=== PATIENT | female | born 1940 | race African-American/Black ===

== ENCOUNTER 2018-01-09 10:13 | Outpatient (CLI) | payer MEDICARE, OTHER ==
[~2018-01-09 10:13] MED LIST: ALBUTEROL INHALER ORAL; AMLODIPINE BESYL5 MG ORAL; ASPIRIN-LOW81 MG ORAL; ATORVASTATIN CA10 MG ORAL; COZAAR25 MG ORAL; DOCUSATE SODIU100 MG ORAL; FERROUS SULFAT325 M2 PO; GLUCOTROL10 MG ORAL; HYDROCHLOROTHIA25 MG ORAL; JANUMET 50-5001 EACH ORAL; JANUVIA25 MG ORAL; LABETALOL HCL100 MG ORAL; LINZESS145 MCG PO; NEXIUM40 M2 ORAL; VITAMIN A8000 UNIT PO; ZOCOR20 M1 ORAL
[2018-01-09 15:17] VITALS: BP 146/68
--- NOTE | 2018-01-10 15:33 | GI Initial Consult Note ---
History of Present Illness General Date patient seen: Jan 10, 2018 Time patient seen: 15:27 Referring physician: JEAN Reason for Consultation: RECTAL DISCOMFORT Present Illness HPI 77 year old female patient referred by Dr. Meeks presents today with complaint of rectal pressure and discomfort. In addition, has complaint of constipation in which she uses stool softeners. Hx. of uterine cancer (2003), colon cancer (2008), DM, asthma, HTN, GERD, cataracts, dyslipidemia. S/P EGD and colonoscopy 2014 noted with gastritis, colon polyp x3. Denies abdominal pain, no weight loss, melena, or hematochezia. Strong family history of colon cancer. Home Meds Reported Medications Linaclotide (LINZESS) 145 Mcg Capsule, 145 MCG PO DAILY, CAP 01/07/15 Simvastatin (ZOCOR) 20 Mg Tablet, 20 MG ORAL BEDTIME, TAB 12/02/14 Amlodipine Besylate* (AMLODIPINE BESYLATE*) 5 Mg Tablet, 5 MG ORAL DAILY, TAB 12/02/14 Sitagliptin Phos/Metformin Hcl (JANUMET 50-500 MG TABLET) 1 Each Tablet, 1 TAB ORAL DAILY, TAB 12/02/14 Esomeprazole Magnesium (NEXIUM) 40 Mg Suspdr.pkt, 40 MG ORAL DAILY 07/31/12 [Albuterol Inhaler] No Conflict Check, 2 PUFF ORAL NEEDED 07/31/12 Aspirin (Aspirin EC) 81 Mg Tabec, 81 MG ORAL DAILY, TAB 07/31/12 Labetalol Hcl* (NORMODYNE*) 100 Mg Tablet, 100 MG ORAL BID, #20 TAB 07/31/12 Glipizide* (GLUCOTROL*) 10 Mg Tablet, 10 MG ORAL ACBREAKFAST, #10 TAB 07/31/12 Hydrochlorothiazide* (HYDROCHLOROTHIAZIDE*) 25 Mg Tablet, 25 MG ORAL DAILY, TAB 07/31/12 Med list reviewed/reconciled: Yes Allergies: Coded Allergies: WOOL (Verified Allergy, Severe, 12/23/14) SKIN RASH, ITCHING PENICILLINS (Verified Allergy, Intermediate, 12/23/14) SKIN RASH Uncoded Allergies: FIBERGLASS (Allergy, Severe, 12/23/14) FEVER, TOTALLY GOT SICK SHELLFISH (Allergy, Severe, 12/23/14) ABD PAIN, NAUSEA Patient History History Provided By: Patient, Medical Record PMH Narrative See HPI. DM, uterine cancer, colon cancer, HTN, GERD, cataracts, dyslipidemia. Past Surgical History: other - S/P hysterectomy, sigmoid resection, cholecystectomy, cataract surgery, appendectomy. Pertinent Family History: other - Colon cancer in both father and sister. Social History: Denies: alcohol use, drug use, other, smoking Past Surgical History: other - see HPI Social History: Denies: smoking, alcohol use, drug use, other Review of Systems All Other Systems: negative except mentioned in HPI Physical Exam Vital Signs Date Time Temp Pulse Resp B/P (MAP) Pulse Ox O2 Delivery O2 Flow Rate FiO2 01/09/18 15:17 98.5 72 146/68 96 Sp02 EP Interpretation: reviewed, normal General Appearance: well appearing, no apparent distress, alert Head: normocephalic EENT: PERRL/EOMI, normal ENT inspection Neck: supple Respiratory: normal breath sounds, no respiratory distress Cardiovascular: normal rate Gastrointestinal: normal inspection, non tender, soft, normal bowel sounds, non -distended Rectal: deferred Genitourinary: no CVA tenderness Musculoskeletal: normal inspection, back normal Neurologic: normal inspection, alert, oriented x3, responsive Psychiatric: normal inspection, judgement/insight normal, memory normal Skin: normal inspection, normal color, no rash, warm/dry, palpation normal, well hydrated Lymphatic: normal inspection, no adenopathy GI: Plan Problems: (1) Rectal pain (2) GERD (gastroesophageal reflux disease) (3) Colon cancer (4) Colon polyp (5) Gastritis Plan Recommend colonoscopy, patient to call to schedule. - CLD & (Nulytely/Suprep/Movi-Prep) prep instructions given and acknowledged by patient. - NPO @ NH day prior procedure explained. will follow with additional recommendations post procedure. Seen with Dr. Forte. Thank you for this patient referral. The patient was seen and examined at bedside and all new and available data was reviewed in the patients chart. I agree with the above findings, impression and plan. (Patient seen earlier today. Signature stamp does not reflect patient encounter time.). - MD Oksana Torres,[facility] [employer] [facility] RECLAIMER Jan 10, 2018 15:33
== END 2018-01-09 10:43 | disposition home or self-care (01) ==
LOC: PAN 10:13
DX: K62.89 Other specified diseases of anus and rectum (principal); K21.9 Gastro-esophageal reflux disease without esophagitis; Z85.42 Personal history of malignant neoplasm of other parts of uterus; E11.9 Type 2 diabetes mellitus without complications; J45.909 Unspecified asthma, uncomplicated; I10 Essential (primary) hypertension; E78.5 Hyperlipidemia, unspecified; K29.70 Gastritis, unspecified, without bleeding
CPT/HCPCS: 99212

== ENCOUNTER 2018-02-07 09:23 | Day surgery (SDC) | payer MEDICARE, OTHER ==
[~2018-02-07] VITALS: Ht 170.2 cm; Wt 90.7 kg
[2018-02-07] VITALS (7 sets, daily range): BP systolic 125–155; BP diastolic 62–76
--- NOTE | 2018-02-07 06:57 | Anethesia Preoperative Eval ---
Anesthesia Pre-op PMH/ROS General Date of Evaluation: Feb 07, 2018 Time of Evaluation: 06:53 Anesthesiologist: anitha ASA Score: ASA 4 Mallampati Score Class I : Soft palate, uvula, fauces, pillars visible Class II: Soft palate, uvula, fauces visible Class III: Soft palate, base of uvula visible Class IV: Only hard plate visible Mallampati Classification: Class II Surgeon: margo Diagnosis: hx/o colon polyps Surgical Procedure: colonoscopy Anesthesia History: none Social History: smoking - former smoker Family History: no anesthesia problems Allergies: Coded Allergies: WOOL (Verified Allergy, Severe, 12/23/14) SKIN RASH, ITCHING PENICILLINS (Verified Allergy, Intermediate, 12/23/14) SKIN RASH Uncoded Allergies: FIBERGLASS (Allergy, Severe, 12/23/14) FEVER, TOTALLY GOT SICK SHELLFISH (Allergy, Severe, 12/23/14) ABD PAIN, NAUSEA Medications: see eMAR Patient NPO?: Yes Past Medical History Cardiovascular: Reports: HTN, [place] Pulmonary: Reports: asthma, [place], other - hx/o tracheostomy Gastrointestinal/Genitourinary: Reports: GERD, other - uterine cancer, rectal pain, colon polyps, gastritis, colon cancer, Endocrine: Reports: DM HEENT: Reports: cataract (L), cataract (R) Hematology/Immune: Reports: anemia Musculoskeletal/Integumentary: Reports: OA Anesthesia Pre-op Phys. Exam Physician Exam Last Vital Signs Date Time Temp Pulse Resp B/P (MAP) Pulse Ox O2 Delivery O2 Flow Rate FiO2 12/5/18 10:24 97.0 70 18 127/66 100 Room Air Constitutional: NAD Neurologic: CN 2-12 intact Cardiovascular: RRR Respiratory: CTA Gastrointestinal: S/NT/ND Airway Exam Mallampati Score: Class II MO: limited Neck: flexible TMD: 2fb ROM: limited Anesthesia Pre-op A/P Risk Assessment & Plan Assessment: asa4 Plan: mac Status Change Before Surgery: No Pre-Antibiotics Drug: Dhara Mccarthy MD Feb 07, 2018 06:57
[~2018-02-07 09:23] MED LIST changes: +Atropine Inj 1mg/10ml Syr IV PRN; +DiphenhydrAMINE 50mg/ml Inj IVP PRN; +Midazolam 2mg/2ml Inj IVP PRN; +fentaNYL 100 mcg/2 mL IV PRN
--- NOTE | 2018-02-07 10:24 | Pre-Procedure Note/Attestation ---
Pre-Procedure Note/Attestation Complete Prior to Procedure Planned Procedure: not applicable Procedure Narrative: colonoscopy Indications for Procedure Pre-Operative Diagnosis: h/o colon polyps Attestation I attest that I discussed the nature of the procedure; its benefits; risks and complications; and alternatives (and the risks and benefits of such alternatives ), prior to the procedure, with the patient (or the patient's legal shared services representative). I attest that, if there was a reasonable possibility of needing a blood transfusion, the patient (or the patient's legal shared services representative) was given the [facility] standardized written summary, pursuant to the [place] Blood Safety Act ([place] Health and Safety Code # 1645, as amended). I attest that I re-evaluated the patient just prior to the surgery and that there has been no change in the patient's H&P, except as documented below: Best Forte MD Feb 07, 2018 10:24
--- NOTE | 2018-02-07 10:25 | Short Stay Surgery H&P ---
History of Present Illness History of Present Illness Chief Complaint see recent office note HPI Melinda Almodovar is a 77 year old female who was admitted on for History Of Colon Polyps Patient History Allergies: Coded Allergies: WOOL (Verified Allergy, Severe, 12/23/14) SKIN RASH, ITCHING PENICILLINS (Verified Allergy, Intermediate, 12/23/14) SKIN RASH Uncoded Allergies: FIBERGLASS (Allergy, Severe, 12/23/14) FEVER, TOTALLY GOT SICK SHELLFISH (Allergy, Severe, 12/23/14) ABD PAIN, NAUSEA Relevant Family History: Colon cancer Medication History Scheduled Amlodipine Besylate* (Amlodipine Besylate*), 5 MG ORAL DAILY, (Reported) Aspirin (Aspirin EC), 81 MG ORAL DAILY, (Reported) Esomeprazole Magnesium (Nexium), 40 MG ORAL DAILY, (Reported) Hydrochlorothiazide* (Hydrochlorothiazide*), 25 MG ORAL DAILY, (Reported) Labetalol Hcl* (Normodyne*), 100 MG ORAL BID, (Reported) Linaclotide (Linzess), 145 MCG PO DAILY, (Reported) Simvastatin (Zocor), 20 MG ORAL BEDTIME, (Reported) Sitagliptin Phos/Metformin Hcl (Janumet 50-500 Mg Tablet), 1 TAB ORAL DAILY, ( Reported) [Albuterol Inhaler], 2 PUFF ORAL NEEDED, (Reported) Discontinued Medications Glipizide* (Glucotrol*), 10 MG ORAL ACBREAKFAST, (Reported) Discontinued Reason: discontinued med Physical Exam Vital Signs Last Vital Signs Date Time Temp Pulse Resp B/P (MAP) Pulse Ox O2 Delivery O2 Flow Rate FiO2 02/07/18 10:19 Room Air Plan Attestation Are the patient's medical conditions optimized for surgery? Best Forte MD Feb 07, 2018 10:25
[2018-02-07] MEDS ORDERED: Lidocaine 1% MPF 10mg/ml 5ml ONE (10:30)
[2018-02-07] MEDS ORDERED: Propofol 200mg/20ml IV ONE (10:30)
--- NOTE | 2018-02-07 11:25 | Endoscopy Procedure Note ---
Endoscopy Procedure Note General Indication for Procedure: h/o colon cancer and polyps Procedures Performed: colonoscopy Operative Findings/Diagnosis: 6 polyps Specimen: yes Pt Tolerated Procedure Well: Yes Estimated Blood Loss: none Anesthesia Anesthesiologist: anitha Anesthesia: MAC Inserted Devices Implant(s) used?: No Quality Quality of Bowel Preparation: Good Did scope reach the cecum?: Yes Was there any complications?: No GI Core Measures 50 yrs or older w/o bx or poly: No 10yrs. F/U not recommended: Yes If not recommended, why?: Above average risk 10 yrs. F/U needed: Yes 18 years or older w/prev. colo: Yes <3yrs. since last colonoscopy: No Best Forte MD Feb 07, 2018 11:25
--- NOTE | 2018-02-07 11:46 | Immediate Post-Op Evaluation ---
Immediate Post-Op Evalulation Immediate Post-Op Evalulation Procedure: colonoscopy w/ bx Date of Evaluation: Feb 07, 2018 Time of Evaluation: 11:44 IV Fluids: 200ml 0.9ns Blood Products: none Estimated Blood Loss: negligible Blood Pressure Systolic: 125 Blood Pressure Diastolic: 65 Pulse Rate: 71 Respiratory Rate: 18 O2 Sat by Pulse Oximetry: 100 Temperature (Fahrenheit): 98.3 Pain Score (1-10): 0 Nausea: No Vomiting: No Complications none Patient Status: awake, reacts, patent Hydration Status: adequate Drug: Dhara Mccarthy MD Feb 07, 2018 11:46
--- NOTE | 2018-02-07 11:48 | 48 Hour Post Anesthesia Eval ---
Post Anesthesia Evaluation Procedure: colonoscopy w/ bx Date of Evaluation: Feb 07, 2018 Time of Evaluation: 11:46 Blood Pressure Systolic: 130 0: 65 Pulse Rate: 71 Respiratory Rate: 18 Temperature (Fahrenheit): 98.3 O2 Sat by Pulse Oximetry: 100 Airway: patent Nausea: No Vomiting: No Pain Intensity: 0 Hydration Status: adequate Cardiopulmonary Status: stable Mental Status/LOC: patient returned to baseline Post-Anesthesia Complications: none Follow-up care needed: N/A Dhara Clark MD Feb 07, 2018 11:48
--- NOTE | 2018-02-07 19:15 | Procedure Note ---
DATE OF PROCEDURE: 02/07/2018 SURGEON: Best Forte M.D. PROCEDURE: Colonoscopy with snare polypectomy and biopsy. ANESTHESIA: By Dr. Hoff. INSTRUMENT: Olympus adult flexible colonoscope. INDICATION: History of colonic polyps and history of colonic cancer. REASON FOR PROCEDURE: The procedure, risks, benefits, and possible consequences, including hemorrhage, aspiration, perforation and infection, and alternative treatments, were explained to the patient/legal guardian by Dr. Best Forte and the patient/legal guardian understood and accepted these risks. PROCEDURE IN DETAIL: After informed consent was obtained and the patient was adequately sedated, first rectal exam was performed, which was positive for internal hemorrhoids. Then, the scope was advanced from the rectum into the cecum documented by appendiceal orifice, ileocecal valve, and right upper quadrant palpation. Quality of prep was very good. The patient had a total of 6 polyps in this colonoscopy examination, two in the cecum, two in the transverse, and two in the sigmoid. The largest polyp was in the transverse colon, measured 1.3 cm, sessile, removed with a hot snare polypectomy technique. The second largest one was in the cecum, measured roughly about 6 mm, removed with a hot snare polypectomy technique. The rest of the polyps were small and removed with cold biopsy forceps technique. The patient had some scattered diverticulosis in the left colon. Retroflexion of rectum showed evidence of internal hemorrhoids. SUMMARY OF FINDINGS: 1. A total of 6 polyps removed. See above for details. One of them 1.3 cm in size. 2. Scattered diverticulosis. 3. Internal hemorrhoids. RECOMMENDATIONS: Follow up biopsy results and treat accordingly. The patient will need a repeat colonoscopy in minimum 3 years. Depending on the pathology and the polyps, it may be avila consider doing it earlier. We will follow. I want to thank Dr. Deanna Meeks for this kind referral. Best Forte M.D. DR: CONCHA JOB#: [id number] CC: Deanna Meeks M.D.; Fax#: [phone]
== END 2018-02-07 12:45 | disposition home or self-care (01) ==
LOC: GAS 09:23
DX: C18.4 Malignant neoplasm of transverse colon (principal); D12.0 Benign neoplasm of cecum; D12.5 Benign neoplasm of sigmoid colon; K63.5 Polyp of colon; K64.8 Other hemorrhoids; K57.30 Diverticulosis of large intestine without perforation or abscess without bleeding; I10 Essential (primary) hypertension; Z86.010 Personal history of colon polyps; Z85.038 Personal history of other malignant neoplasm of large intestine; I25.2 Old myocardial infarction; J45.909 Unspecified asthma, uncomplicated; G47.33 Obstructive sleep apnea (adult) (pediatric); K21.9 Gastro-esophageal reflux disease without esophagitis; E11.9 Type 2 diabetes mellitus without complications; D64.9 Anemia, unspecified; M19.90 Unspecified osteoarthritis, unspecified site; Z85.42 Personal history of malignant neoplasm of other parts of uterus; Z88.0 Allergy status to penicillin; Z91.013 Allergy to seafood; Z79.82 Long term (current) use of aspirin; Z79.899 Other long term (current) drug therapy
CPT/HCPCS: 45380; 45385; 82962; 93005; J2704; 94003; 94150

== ENCOUNTER 2018-02-21 14:45 | Outpatient (CLI) | payer MEDICARE, OTHER ==
[~2018-02-21 14:45] MED LIST changes: -Atropine Inj 1mg/10ml Syr IV PRN; -DiphenhydrAMINE 50mg/ml Inj IVP PRN; -Midazolam 2mg/2ml Inj IVP PRN; -fentaNYL 100 mcg/2 mL IV PRN
--- NOTE | 2018-02-22 14:19 | GI Progress Note ---
Assessment/Plan Problems: (1) Colon polyp ICD Codes: K63.5 - Polyp of colon SNOMED: 98575451 (2) Rectal pain ICD Codes: K62.89 - Other specified diseases of anus and rectum SNOMED: 22965007 (3) Asthma ICD Codes: J45.909 - Unspecified asthma, uncomplicated SNOMED: 736482347 (4) Hyperlipidemia ICD Codes: E78.5 - Hyperlipidemia, unspecified SNOMED: 76559344, 549455335 (5) Gastritis ICD Codes: K29.70 - Gastritis, unspecified, without bleeding SNOMED: 7695936 (6) Colon cancer ICD Codes: C18.9 - Malignant neoplasm of colon, unspecified SNOMED: 034478673 (7) GERD (gastroesophageal reflux disease) ICD Codes: K21.9 - Gastro-esophageal reflux disease without esophagitis SNOMED: 597793829 Status: stable Status Narrative Seen with Dr. Forte. Assessment/Plan SUMMARY OF FINDINGS: 1. A total of 6 polyps removed. See above for details. One of them 1.3 cm in size. 2. Scattered diverticulosis. 3. Internal hemorrhoids. RECOMMENDATIONS: Follow up biopsy results and treat accordingly. 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 I agree with the above findings, impression and plan. (Patient seen earlier today. Signature stamp does not reflect patient encounter time.). - Best Forte MD Subjective Subjective Here for colonoscopy review Has complaint of nausea after the procedure, has slightly improved Objective Temperature 97.4 Blood pressure 154/69 pulse 69 99% room air General Appearance: WD/WN, no apparent distress, alert Cardiovascular: normal rate Respiratory/Chest: normal breath sounds, no respiratory distress Abdominal Exam: normal bowel sounds, non tender, soft Extremities: normal range of motion, non-tender Steve Gandhi NP Feb 22, 2018 14:19
== END 2018-02-21 15:09 | disposition home or self-care (01) ==
LOC: PAN 14:45
DX: K63.5 Polyp of colon (principal); K62.89 Other specified diseases of anus and rectum; J45.909 Unspecified asthma, uncomplicated; E78.5 Hyperlipidemia, unspecified; K29.70 Gastritis, unspecified, without bleeding; C18.9 Malignant neoplasm of colon, unspecified; K21.9 Gastro-esophageal reflux disease without esophagitis; K57.90 Diverticulosis of intestine, part unspecified, without perforation or abscess without bleeding; K64.8 Other hemorrhoids
CPT/HCPCS: 99212